=== PATIENT | male | born 1950 | race Caucasian/White ===

== ENCOUNTER 2016-05-03 10:12 | Outpatient (CLI) | payer MEDICARE, OTHER ==
[2016-05-03 11:17] LABS: Hemoglobin A1c 5.4 % (4.0-6.0)
[2016-05-03 11:22] LABS: ALT (SGPT) 21 U/L (0-55); AST (SGOT) 30 U/L (5-34); Alkaline Phosphatase 85 U/L (40-150); Anion Gap 12 mmol/L (10-20); BUN (Urea Nitrogen) 12 mg/dL (8.4-25.7); Bilirubin, Total 0.9 mg/dL (0.2-1.2); Calc. Creatinine Clearance 0 mL/min (70-130); Calcium 9.4 mg/dL (7.8-10.44); Carbon Dioxide 26 mmol/L (23-31); Chloride 108 mmol/L (98-107); Estimated GFR-MDRD Greater than 90; Globulin 2.1 g/dL (2.4-3.5); LDL Cholesterol, Calculated 91 mg/dL; Protein, Total 6.5 g/dL (5.8-8.1)
[2016-05-03 19:03] LABS: Microalbumin Urine Less than 1.0 mg/dL (0.5-50.0)
== END 2016-05-03 10:13 | disposition home or self-care (01) ==
LOC: NAV LAB 10:12
PROVIDERS: ATTEND Family Medicine
DX: R73.01 Impaired fasting glucose (principal)
CPT/HCPCS: 36415; 80053; 80061; 82043; 82570; 83036; 84443